=== PATIENT | male | born 1960 | race Caucasian/White ===

== ENCOUNTER 2016-12-08 19:20 | Day surgery (SDCO) | payer OTHER ==
[2016-12-08 20:21] LABS: BASOPHIL 0.5 % (0-2); EOSINOPHIL 3.2 % (0-5); HCT 40.2 % (42.0-52.0); HGB 13.7 g/dl (13.2-18.0); LYMPHOCYTE 37.2 % (15-48); MCHC 34.1 g/dL (32.0-36.0); NEUTROPHIL 50.1 % (41-80); PLT 178 K/uL (150-400); RBC 4.57 M/uL (4.70-6.00); RDW 13.9 % (11.5-14.0); WBC 8.1 K/uL (4.0-10.5)
[2016-12-08 20:29] LABS: INR 1.06 (0.9-1.2); PROTHROMBIN TIME 13.4 SECONDS (11.7-14.0); PTT 34.9 SECONDS (23.2-31.4)
[2016-12-08 20:30] LABS: D-DIMER 0.58 ug/mLFEU (0.00-0.41)
[2016-12-08 20:48] LABS: ALBUMIN 3.9 g/dL (3.5-5.0); BILIRUBIN - TOTAL 0.2 mg/dL (0.1-1.0); CKMB 2.46 ng/mL (0.97-4.94); CREATININE 0.8 mg/dL (0.7-1.2); GLOBULIN (CALCULATION) 2.7 g/dL (2.2-4.2); MAGNESIUM 2.06 mg/dL (1.40-2.10); MYOGLOBIN 22 ng/mL (26-65); POTASSIUM 3.8 mmol/L (3.5-5.1); PRO-BNP 113 pg/mL (0-125); TOTAL PROTEIN 6.6 g/dL (6.4-8.3); TROPONIN T < 0.010 ng/mL
[2016-12-09 06:19] LABS: CKMB 1.77 ng/mL (0.97-4.94); TROPONIN T < 0.010 ng/mL
[2016-12-09 09:32] LABS: BASOPHIL 0.3 % (0-2); EOSINOPHIL 2.7 % (0-5); HCT 40.1 % (42.0-52.0); HGB 13.5 g/dl (13.2-18.0); LYMPHOCYTE 30.8 % (15-48); MCH 29.5 pg (25.0-31.0); MCHC 33.7 g/dL (32.0-36.0); MCV 87.7 fL (78.0-100.0); MONOCYTE 9.7 % (0-12); MPV 10.3 fL (6.0-9.5); NEUTROPHIL 56.5 % (41-80); PLT 155 K/uL (150-400); RBC 4.57 M/uL (4.70-6.00); WBC 7.7 K/uL (4.0-10.5)
[2016-12-09 09:48] LABS: BILIRUBIN - TOTAL 0.4 mg/dL (0.1-1.0); CREATININE 0.8 mg/dL (0.7-1.2); GLOBULIN (CALCULATION) 2.4 g/dL (2.2-4.2); MAGNESIUM 2.14 mg/dL (1.40-2.10); POTASSIUM 4.2 mmol/L (3.5-5.1); TOTAL PROTEIN 6.4 g/dL (6.4-8.3)
[2016-12-09] MEDS ORDERED: LOPRESSOR25 MG PO (14:04)
[2016-12-09] MEDS ORDERED: NORVASC5 MG PO (14:04)
[2016-12-09] MEDS ORDERED: ASPIR 8181 MG PO (14:05)
--- NOTE | 2016-12-09 15:16 | NUR ---
PT DISCHARGED. VITALS STABLE. PT AMBULATORY FROM TCU WITH STEADY GAIT. NO DISTRESS NOTED. PT VERBALIZED UNDERSTANDING OF ALL DISCHARGE INSTRUCTIONS
== END 2016-12-09 15:15 | disposition home or self-care (01) ==
LOC: FER 19:20 → FICU 12-09 02:45
PROVIDERS: Emergency Medicine; Emergency Medicine Emergency Medical Services; ADMIT Internal Medicine
DX: R07.9 Chest pain, unspecified (principal); I25.10 Atherosclerotic heart disease of native coronary artery without angina pectoris; I10 Essential (primary) hypertension; E78.5 Hyperlipidemia, unspecified; E11.9 Type 2 diabetes mellitus without complications; Z80.0 Family history of malignant neoplasm of digestive organs; Z80.1 Family history of malignant neoplasm of trachea, bronchus and lung; Z83.3 Family history of diabetes mellitus; Z82.49 Family history of ischemic heart disease and other diseases of the circulatory system; Z83.6 Family history of other diseases of the respiratory system; Z79.899 Other long term (current) drug therapy; Z95.1 Presence of aortocoronary bypass graft
CPT/HCPCS: 36415; 71010; 71275; 80053; 80061; 82550; 82553; 83735; 83874; 83880; 84484; 85025; 85379; 85610; 85730; 93005; G0378; Q9967

== ENCOUNTER 2021-11-27 13:47 | Day surgery (SDCO) | payer OTHER ==
[~2021-11-27] VITALS: Ht 177.8 cm; Wt 90.5 kg
[~2021-11-27 13:47] MED LIST: AMARYL2 MG PO; ASPIR 8181 MG PO; BRILINTA90 MG PO; COZAAR50 MG PO; CRESTOR10 MG PO; ISOSORBIDE MONO60 MG PO; LOPRESSOR25 MG PO; NITROQUIK SL0.4 MG SL; NORVASC5 MG PO; PRASUGREL HCL10 MG PO; PROTONIX 40MG T40 MG PO; PROZAC20 MG PO; SINGULAIR10 MG PO; SPIRIVA 18MCG18 MCG INH; SYMBICORT 80-10.2 GM INH; TRULICITY1.5 MG/0.5 SC; VENTOLIN HFA IN18 GM INH
[2021-11-27 14:04] LABS: BASOPHIL 0.7 % (0-2); EOSINOPHIL 1.2 % (0-5); HCT 41.5 % (42.0-52.0); LYMPHOCYTE 5.9 % (15-48); MCH 30.9 pg (25.0-31.0); MCHC 33.7 g/dL (32.0-36.0); MCV 91.6 fL (78.0-100.0); MONOCYTE 11.1 % (0-12); MPV 9.6 fL (6.0-9.5); NEUTROPHIL 80.8 % (41-80); NRBC 0; PLT 190 K/uL (150-400); RBC 4.53 M/uL (4.70-6.00); RDW 13.8 % (11.5-14.0); WBC 9.1 K/uL (4.0-10.5)
[2021-11-27 14:15] LABS: INR 1.08 (0.9-1.2); PROTHROMBIN TIME 13.4 SECONDS (11.8-13.4)
[2021-11-27 14:17] LABS: D-DIMER 0.51 ug/mLFEU (0.00-0.41)
[2021-11-27 14:25] LABS: ALBUMIN 3.5 g/dL (3.4-5.0); BILIRUBIN - TOTAL 0.3 mg/dL (0.2-1.0); CREATININE 1.12 mg/dL (0.67-1.17); MAGNESIUM 2.2 mg/dL (1.8-2.4); POTASSIUM 4.4 mmol/L (3.5-5.1); TOTAL PROTEIN 7.5 g/dL (6.4-8.2)
[2021-11-27] MEDS ORDERED: RANEXA500 MG PO (20:56)
[2021-11-27] MEDS ORDERED: PLAVIX75 MG PO (20:57)
[2021-11-28 06:10] LABS: BASOPHIL 0.4 % (0-2); EOSINOPHIL 0.6 % (0-5); HCT 40.4 % (42.0-52.0); HGB 13.4 g/dl (13.2-18.0); LYMPHOCYTE 20.2 % (15-48); MCH 30.5 pg (25.0-31.0); MCHC 33.2 g/dL (32.0-36.0); MONOCYTE 15.3 % (0-12); MPV 9.8 fL (6.0-9.5); NEUTROPHIL 62.9 % (41-80); NRBC 0; PLT 148 K/uL (150-400); RBC 4.39 M/uL (4.70-6.00); RDW 14.4 % (11.5-14.0)
[2021-11-28 06:43] LABS: ALBUMIN 3.2 g/dL (3.4-5.0); BILIRUBIN - TOTAL 0.4 mg/dL (0.2-1.0); BUN/CREAT RATIO (CALC) 12.4 RATIO; CREATININE 1.05 mg/dL (0.67-1.17); POTASSIUM 3.8 mmol/L (3.5-5.1); TOTAL PROTEIN 6.2 g/dL (6.4-8.2)
[2021-11-28 06:58] LABS: CKMB <0.5 ng/mL (0.0-3.6); PRO-BNP 97 pg/mL (<125)
[2021-11-29 05:59] LABS: BASOPHIL 0.7 % (0-2); EOSINOPHIL 0.9 % (0-5); HGB 13.4 g/dl (13.2-18.0); LYMPHOCYTE 36.4 % (15-48); MCH 30.5 pg (25.0-31.0); MCHC 32.7 g/dL (32.0-36.0); MCV 93.2 fL (78.0-100.0); MONOCYTE 11.7 % (0-12); MPV 9.8 fL (6.0-9.5); NRBC 0; PLT 138 K/uL (150-400); RDW 14.3 % (11.5-14.0); WBC 5.7 K/uL (4.0-10.5)
[2021-11-29 06:36] LABS: ALBUMIN 2.8 g/dL (3.4-5.0); BILIRUBIN - TOTAL 0.4 mg/dL (0.2-1.0); BUN/CREAT RATIO (CALC) 17.2 RATIO; CREATININE 0.93 mg/dL (0.67-1.17); GLOBULIN (CALCULATION) 3.1 g/dL; POTASSIUM 4.3 mmol/L (3.5-5.1); TOTAL PROTEIN 5.9 g/dL (6.4-8.2)
--- NOTE | 2021-11-29 12:33 | NUR ---
0800- METOPROLOL 25 MG HELD R/T SUPERVISOR CHEMICAL ORDER TO HOLD IF APICAL HEART RATE LESS THAN 50. HEART RATE WAS 49 AT THE TIME OF MEDICATION ADMINISTRATION. NITRO PAASTE PATCH REMOVED FROM LEFT CHEST AND ROUTINE NITRO PASTE HELD R/T BP SOFT 92/51. 1230- ROUTINE NITRO PASTE HELD R/T BP SOFT 113/65 HR 53.
[2021-11-29] MEDS ORDERED: LOPRESSOR25 MG PO (14:47)
== END 2021-11-29 15:00 | disposition home or self-care (01) ==
LOC: FER 13:47 → FTCU 16:51
PROVIDERS: Emergency Medicine; Internal Medicine Cardiovascular Disease; Nurse Practitioner; ADMIT Internal Medicine
DX: R07.89 Other chest pain (principal); I49.5 Sick sinus syndrome; R55 Syncope and collapse; U07.1 COVID-19; R74.01 Elevation of levels of liver transaminase levels; E11.9 Type 2 diabetes mellitus without complications; J44.9 Chronic obstructive pulmonary disease, unspecified; I10 Essential (primary) hypertension; I25.10 Atherosclerotic heart disease of native coronary artery without angina pectoris; E78.5 Hyperlipidemia, unspecified; F41.9 Anxiety disorder, unspecified; Z88.8 Allergy status to other drugs, medicaments and biological substances; Z95.1 Presence of aortocoronary bypass graft; Z95.5 Presence of coronary angioplasty implant and graft; Z87.891 Personal history of nicotine dependence; Z82.49 Family history of ischemic heart disease and other diseases of the circulatory system
CPT/HCPCS: 36415; 71045; 71275; 80053; 80061; 82553; 82962; 83036; 83690; 83735; 83880; 84484; 85025; 85379; 85610; 93005; 94010; G0378; J1650; J1885; J2270; J2405; J7030; Q9967; U0002